=== PATIENT | female | born 1935 ===

== ENCOUNTER 2018-10-24 09:25 | Emergency (ER) | payer SELFPAY ==
[2018-10-24 09:25] VITALS: BMI 25.4
[2018-10-24] MEDS ORDERED: Iohexol 240 (50 ml) PO ONE (09:56)
--- NOTE | 2018-10-24 10:46 | ED PDOC ---
HPI: Abdomen Time Seen by Provider: 10/24/18 09:34 Chief Complaint (Nursing): Abdominal Pain Chief Complaint (Provider): Abdominal Pain History Per: Patient, Family History/Exam Limitations: no limitations Onset/Duration Of Symptoms: Days Current Symptoms Are (Timing): Still Present Location Of Pain/Discomfort: Epigastric Associated Symptoms: Back Pain. denies: Fever, Nausea, Vomiting, Diarrhea, Urinary Symptoms Additional Complaint(s): 83 year old female with a past medical history of hypertension, hyperlipidemia, and chronic back pain who is presenting to the ED for evaluation of abdominal pain and back pain ongoing for about 2 weeks. History was provided by patient and daughter who state that patient has had epigastric abdominal pain and has chronic lower back and joint pain onset after fall many years ago. Patient states that she recently moved from [place] and reports persistent pain. She states that she saw Dr. Pineda on Monday where she was given prescriptions for outpatient workup including an MRI of her spine and CT of her abdomen. However, she has not been able to actually get the outpatient workup. She reports that she has been using Tylenol for pain and denies any nausea, vomiting, diarrhea, or urinary problems. She also denies any numbness, weakness, gait problems, or any other medical complaints. PMD: [facility] Past Medical History Reviewed: Historical Data, Nursing Documentation, Vital Signs Vital Signs: Last Vital Signs Temp Pulse 71 10/24/18 10:00 Resp 18 10/24/18 10:00 BP 155/68 H 10/24/18 10:00 Pulse Ox 98 10/24/18 10:00 - Medical History PMH: Anxiety, Arthritis, CVA (5 years ago), Depression, HTN, Hyperc holesterolemia, Hyperlipidemia Denies: Chronic Kidney Disease - Surgical History Surgical History: No Surg Hx - Family History Family History: States: Unknown Family Hx - Social History Current smoker - smoking cessation education provided: No Alcohol: None Drugs: Denies - Immunization History Hx Tetanus Toxoid Vaccination: No Hx Influenza Vaccination: No Hx Pneumococcal Vaccination: No - Home Medications Home Medications: Ambulatory Orders Medication Instructions Recorded FLUoxetine [Prozac] 10 mg PO DAILY 02/18/15 Olmesartan Medoxomil [Benicar] 20 mg PO DAILY 02/18/15 [id number] Ethyl Esters [OMEGA 3] 1,000 mg PO QID 07/01/15 Simvastatin [Zocor] 20 mg PO DAILY 02/18/15 Famotidine [Pepcid] 20 mg PO DAILY #14 tab 10/24/18 - Allergies Allergies/Adverse Reactions: Allergies Allergy/AdvReac Type Severity Reaction Status Date / Time No Known Allergies Allergy Verified 02/18/15 18:30 Review of Systems ROS Statement: Except As Marked, All Systems Reviewed And Found Negative Constitutional: Negative for: Fever, Weakness Gastrointestinal: Positive for: Abdominal Pain. Negative for: Nausea, Vomiting, Diarrhea Genitourinary Female: Negative for: Dysuria, Frequency Musculoskeletal: Positive for: Back Pain Neurological: Negative for: Weakness, Numbness Physical Exam - Reviewed Nursing Documentation Reviewed: Yes Vital Signs Reviewed: Yes - Physical Exam Appears: Positive for: Well, Non-toxic, No Acute Distress Head Exam: Positive for: ATRAUMATIC, NORMAL INSPECTION, NORMOCEPHALIC Skin: Positive for: Normal Color, Warm, DRY Eye Exam: Positive for: EOMI, Normal appearance, PERRL Neck: Positive for: Normal, Painless ROM Cardiovascular/Chest: Positive for: Regular Rate, Rhythm. Negative for: Murmur Respiratory: Positive for: Normal Breath Sounds. Negative for: Respiratory Distress Gastrointestinal/Abdominal: Positive for: Soft, Tenderness (epigastric ). Negative for: Distended, Guarding, Rebound Back: Positive for: Other (diffuse paraspinal tenderness ). Negative for: L CVA Tenderness, R CVA Tenderness, Vertebral Tenderness Extremity: Positive for: Normal ROM. Negative for: Deformity, Swelling Neurologic/Psych: Positive for: Alert, Oriented. Negative for: Motor/Sensory Deficits - Laboratory Results Result Diagrams: 10/24/18 10:21 10/24/18 10:21 - ECG ECG: Positive for: Interpreted By Me, Viewed By Me ECG Rhythm: Positive for: Normal QRS, Normal ST Segment, Sinus Rhythm. Negative for: ST/T Changes Rate: 64 O2 Sat by Pulse Oximetry: 98 (RA) Pulse Ox Interpretation: Normal - Progress Re-evaluation Time: 16:53 Condition: Re-examined, Improved Medical Decision Making Medical Decision Making: Time: 9:58 Impression: abdominal pain and chronic back pain Differentials: acute cholecystitis, pancreatitis, PUD, r/o AAA, DJD, lumbar radiculopathy Plan: --CT Abd/Pelvis --EKG --Amylase --CMP --Troponin --ED Urine Dipstick --CBC --Omnipaque 50 ml PO Time: 1606 CT abdomen FINDINGS: LOWER THORAX: Restrained motion degrades quality of the lower chest and upper abdomen sections significantly. Cardiomegaly is identified. There is a mild hiatal hernia evident as well. No pleural or pericardial effusion grossly evident. LIVER: Unremarkable. No gross lesion or ductal dilatation. GALLBLADDER AND BILE DUCTS: Distended but otherwise nonacute appearing. Clinically correlate. PANCREAS: Unremarkable. No gross lesion or ductal dilatation. SPLEEN: Unremarkable. ADRENALS: Mild bilateral adrenal hyperplasia suggested. Artifacts restrained motion obscure the adrenal glands. KIDNEYS AND URETERS: Unremarkable. No hydronephrosis. No solid mass. VASCULATURE: Nonaneurysmal abdominal aortic calcific atherosclerotic changes are identified. BOWEL: Biopsy of the bowel is grossly compromised, particularly the colon, due to respiratory motion related artifacts. APPENDIX: Normal appendix. PERITONEUM: Unremarkable. No free fluid. No free air. LYMPH NODES: Unremarkable. No enlarged lymph nodes. BLADDER: Decompressed and limited in evaluation. REPRODUCTIVE: Unremarkable. BONES: Diffuse osteopenia suggests osteoporosis. Minimal grade 1 spondylolisthesis L4 anterior to L5. This on degenerative facet joint basis rather than spondylolysis. Advanced multilevel facet joint degenerative arthropathy is appreciated with gross spondylosis at the inferior thoracic spine. OTHER FINDINGS: None. IMPRESSION: No definitive acute abdomen or pelvic pathology. Infrequent benign-appearing findings as discussed above. Scribe Attestation: Documented by Radha Hernandez, acting as a scribe for Sarah Alavrez MD. Provider Scribe Attestation: All medical record entries made by the Scribe were at my direction and personally dictated by me. I have reviewed the chart and agree that the record accurately reflects my personal performance of the history, physical exam, medical decision making, and the department course for this patient. I have also personally directed, reviewed, and agree with the discharge instructions and disposition. Disposition - Clinical Impression Clinical Impression: Abdominal pain, DJD (degenerative joint disease), lumbar - Patient ED Disposition Is Patient to be Admitted: No Doctor Will See Patient In The: Office Counseled Patient/Family Regarding: Studies Performed, Diagnosis, Need For Followup - Disposition Referrals: [facility] [Outside] Disposition: Routine/Home Disposition Time: 16:53 Condition: GOOD Additional Instructions: RADHA HOLMAN, thank you for letting us take care of you today. Your provider was Sarah Alvarez MD and you were treated for ABD/BACK PAIN. The emergency medical care you received today was directed at your acute symptoms. If you were prescribed any medication, please fill it and take as directed. It may take several days for your symptoms to resolve. Return to the Emergency Department if your symptoms worsen, do not improve, or if you have any other problems. Please contact your doctor or call one of the physicians/clinics you have been referred to that are listed on the Patient Visit Information form that is included in your discharge packet. Bring any paperwork you were given at discharge with you along with any medications you are taking to your follow up visit. Our treatment cannot replace ongoing medical care by a primary care provi kimberly outside of the emergency department. Thank you for allowing the [facility] team to be part of your care today. If you had an X-Ray or CT scan: A Radiologist will review the ED reading if any change in treatment is needed we will contact you. If you had a blood, urine, or wound culture: It will take several days for the results, if any change in treatment is needed we will contact you. If you had an STI test: It will take 48 hours for the results. Please call after 1 week if you have not heard back. Prescriptions: Famotidine [Pepcid] 20 mg PO DAILY #14 tab Instructions: Low Back Pain (DC), Stomach Ache and Stomach Upset Forms: [employer] (Tajik) Print Language: LITHUANIAN
[2018-10-24 10:53] VITALS: RESP 18
[2018-10-24 11:28] LABS: BASO % 0.2 % (0.0-2.0); EOS % 0.8 % (0.0-4.0); HEMOGLOBIN 13.2 g/dL (12.0-16.0); LYMPH # 1.5 K/uL (1.0-4.3); LYMPH % 27.7 % (20.0-40.0); MEAN CELL VOLUME 93.2 fl (81.0-99.0); MEAN CORPUSCULAR HEMOGLOBIN 31.4 pg (27.0-31.0); MEAN CORPUSCULAR HGB CONC 33.7 g/dL (33.0-37.0); MEAN PLATELET VOLUME 9.7 fl (7.2-11.7); MONO # 0.7 K/uL (0.0-0.8); MONO % 13.3 % (0.0-10.0); NEUT # 3.1 K/uL (1.8-7.0); NRBC % 0.1 % (0.0-0.0); RBC 4.2 Mil/uL (3.80-5.20); RED CELL DISTRIBUTION WIDTH 13.6 % (11.5-14.5); WHITE BLOOD COUNT 5.3 K/uL (4.8-10.8)
[2018-10-24] MEDS ORDERED: Iohexol 240 (50 ml) ONE (11:35)
[2018-10-24 11:45] LABS: ALB/GLOB RATIO 1.2 (1.0-2.1); ALBUMIN 4.4 g/dL (3.5-5.0); ALT/SGPT 41 U/L (9-52); AMYLASE 86 U/L (30-110); AST/SGOT 39 U/L (14-36); BLOOD UREA NITROGEN 23 mg/dl (7-17); CALCIUM 9.9 mg/dL (8.4-10.2); GFR NON-AFRICAN AMERICAN > 60
[2018-10-24] MEDS ORDERED: Iohexol 300 100 ML IJ ONE (14:03)
[2018-10-24] MEDS ORDERED: Sodium Chloride 0.9% 50 ML IV ONE (14:04)
--- NOTE | 2018-10-24 15:41 | CARD ---
APPROVED REPORT Date of service: 10/24/2018 EKG Measurement Heart [id number] <Conclusion> Sinus rhythm with premature atrial complexes Nonspecific ST abnormality Abnormal ECG
--- NOTE | 2018-10-24 16:10 | CT ---
Date of service: 10/24/2018 PROCEDURE: CT Abdomen and Pelvis with contrast HISTORY: epigastric pain for 1-2 weeks and lower back pain COMPARISON: Right upper quadrant abdomen ultrasound 03/24/2017. TECHNIQUE: Following oral and intravenous contrast administration, a CT examination of the abdomen and pelvis was performed from the domes of the diaphragms to the symphysis pubis with reformatted datasets provided not only axial but also sagittal and coronal series.Contrast dose: Omnipaque 300, 90 cc Radiation dose: Total exam DLP = 499.54 mGy-cm. This CT exam was performed using one or more of the following dose reduction techniques: Automated exposure control, adjustment of the mA and/or kV according to patient size, and/or use of iterative reconstruction technique. FINDINGS: LOWER THORAX: Restrained motion degrades quality of the lower chest and upper abdomen sections significantly. Cardiomegaly is identified. There is a mild hiatal hernia evident as well. No pleural or pericardial effusion grossly evident. LIVER: Unremarkable. No gross lesion or ductal dilatation. GALLBLADDER AND BILE DUCTS: Distended but otherwise nonacute appearing. Clinically correlate. PANCREAS: Unremarkable. No gross lesion or ductal dilatation. SPLEEN: Unremarkable. ADRENALS: Mild bilateral adrenal hyperplasia suggested. Artifacts restrained motion obscure the adrenal glands. KIDNEYS AND URETERS: Unremarkable. No hydronephrosis. No solid mass. VASCULATURE: Nonaneurysmal abdominal aortic calcific atherosclerotic changes are identified. BOWEL: Biopsy of the bowel is grossly compromised, particularly the colon, due to respiratory motion related artifacts. APPENDIX: Normal appendix. PERITONEUM: Unremarkable. No free fluid. No free air. LYMPH NODES: Unremarkable. No enlarged lymph nodes. BLADDER: Decompressed and limited in evaluation. REPRODUCTIVE: Unremarkable. BONES: Diffuse osteopenia suggests osteoporosis. Minimal grade 1 spondylolisthesis L4 anterior to L5. This on degenerative facet joint basis rather than spondylolysis. Advanced multilevel facet joint degenerative arthropathy is appreciated with gross spondylosis at the inferior thoracic spine. OTHER FINDINGS: None. IMPRESSION: No definitive acute abdomen or pelvic pathology. Infrequent benign-appearing findings as discussed above.
[2018-10-24 17:52] VITALS: O2SAT 98
[2018-10-24 18:04] VITALS: BP 135/57; PULSE 66; TEMP 99.1
== END 2018-10-24 18:01 | disposition home or self-care (01) ==
LOC: H.ER 09:25
DX: R10.9 Unspecified abdominal pain (principal); M51.35 Other intervertebral disc degeneration, thoracolumbar region; E78.00 Pure hypercholesterolemia, unspecified; G89.29 Other chronic pain; K44.9 Diaphragmatic hernia without obstruction or gangrene; Z86.73 Personal history of transient ischemic attack (TIA), and cerebral infarction without residual deficits
CPT/HCPCS: 74177; 80053; 82150; 84484; 85025; 93005; 96374; 99285; Q9966; Q9967